=== PATIENT | male | born 1945 | race Caucasian/White ===

== ENCOUNTER → 2019-03-11 | Outpatient (CLI) | payer MEDICARE, OTHER ==
[2019-03-11 12:04] LABS: BE 2.1 mmol/L (-2 to +3); PCO2 42.3 mmHg (35.0-45.0)
== END ==
LOC: M.PUL 11:37
PROVIDERS: Internal Medicine
DX: J44.9 Chronic obstructive pulmonary disease, unspecified (principal)

== ENCOUNTER 2020-07-13 07:57 | Emergency (ER) | payer OTHER ==
[~2020-07-13] VITALS: Ht 177.8 cm; Wt 74.8 kg
[2020-07-13] MEDS ORDERED: CARAFATE 1 GM TA1 GM PO (08:13)
[2020-07-13] MEDS ORDERED: ZOCOR 20 MG TAB20 M1 PO (08:13)
[2020-07-13] MEDS ORDERED: MEDROLDOSEPACK PO (08:30)
[2020-07-13] MEDS ORDERED: VANACOF DM LIQ240 ML PO (08:30)
[2020-07-13] MEDS ORDERED: AZITHROMYCIN 2250 MG PO (08:30)
[2020-07-13 08:37] VITALS: BP 149/55
== END 2020-07-13 08:38 | disposition home or self-care (01) ==
LOC: M.ERS 07:57
DX: J44.1 Chronic obstructive pulmonary disease with (acute) exacerbation (principal); Z20.828 Contact with and (suspected) exposure to other viral communicable diseases; E78.00 Pure hypercholesterolemia, unspecified

== ENCOUNTER 2020-07-23 08:38 | Inpatient (IN) | payer OTHER ==
[~2020-07-23] VITALS: Ht 177.8 cm; Wt 86.9 kg
[~2020-07-23 08:38] MED LIST: AZITHROMYCIN 2250 MG PO; CARAFATE 1 GM TA1 GM PO; MEDROLDOSEPACK PO; VANACOF DM LIQ240 ML PO; ZOCOR 20 MG TAB20 M1 PO
[2020-07-23 08:50] VITALS: BP 129/72
[2020-07-23 09:22] LABS: APTT 25.7 Seconds (25.0-31.3); INR 1.1; PROTIME 11.3 Seconds (9.20-11.50)
[2020-07-23 09:24] LABS: CALCIUM 8.2 mg/dL (8.5-10.1); CREATININE 0.8 mg/dL (0.6-1.3); POTASSIUM 4.5 mmol/L (3.5-5.1)
[2020-07-23 09:25] LABS: ABSOLUTE EOSINOPHILS 0.2 thou/uL (0.0-0.7); ABSOLUTE MONOCYTES 0.5 thou/uL (0.0-1.2); ABSOLUTE NEUTROPHILS 4.7 thou/uL (1.6-8.1); BASOPHILS 0.4 %; EOSINOPHILS 3.2 %; HEMATOCRIT 46.4 % (42.0-52.0); MCH 29.8 pg (26.0-34.0); MCHC 32.3 g/dL (28.0-37.0); MCV 92.3 fL (80.0-100.0); MONOCYTES 7.4 %; MPV 8.4 fl. (7.2-11.1); NUCLEATED RBCS 0 /100WBC; PLATELET COUNT* 278 thou/uL (150-400); RBC 5.03 mil/uL (4.50-6.00); RDW-CV 14.2 % (10.5-14.5); WBC 6.4 thou/uL (4.0-11.0)
[2020-07-23 09:31] LABS: ALBUMIN 3.2 g/dL (3.4-5.0); MAGNESIUM 2.1 mg/dL (1.8-2.4); TOTAL BILIRUBIN 0.4 mg/dL (<0.1-1.0); TOTAL PROTEIN 6.1 g/dL (6.4-8.2)
[2020-07-23 12:30] VITALS: BP 128/41
[2020-07-23 15:11] VITALS: BP 140/60
[2020-07-23 15:19] VITALS: BP 140/60
[2020-07-23 21:00] VITALS: BP 142/47
[2020-07-24 04:50] VITALS: BP 120/54
[2020-07-24 04:56] LABS: HEMOGLOBIN 14.9 gm/dL (14.0-18.0); MCH 29.7 pg (26.0-34.0); MPV 8.7 fl. (7.2-11.1)
[2020-07-24 04:59] LABS: HEMATOCRIT 46.6 % (42.0-52.0); MCHC 31.9 g/dL (28.0-37.0); MCV 93.1 fL (80.0-100.0); NUCLEATED RBCS 0 /100WBC; PLATELET COUNT* 310 thou/uL (150-400); RBC 5.01 mil/uL (4.50-6.00); RDW-CV 13.9 % (10.5-14.5); WBC 8.6 thou/uL (4.0-11.0)
[2020-07-24 05:15] LABS: ANION GAP < 0 mmol/L (7-16); BUN 15 mg/dL (7-18); CALCIUM 8.5 mg/dL (8.5-10.1); CHLORIDE 104 mmol/L (98-107); CO2 41 mmol/L (21-32); CREATININE 0.7 mg/dL (0.6-1.3); GLUCOSE 177 mg/dL (70-99); POTASSIUM 4.9 mmol/L (3.5-5.1); SODIUM 143 mmol/L (136-145)
[2020-07-24 06:12] LABS: ABSOLUTE LYMPHOCYTES 0.5 thou/uL (0.8-5.3); ABSOLUTE MONOCYTES 0.2 thou/uL (0.0-1.2); ABSOLUTE NEUTROPHILS 7.9 thou/uL (1.6-8.1); PLATELET ESTIMATE ADEQUATE; TOXIC GRANULATION 1+
[2020-07-24 08:00] VITALS: BP 120/42
[2020-07-24 10:55] LABS: PO2 117.9 mmHg (75.0-100.0)
[2020-07-24 11:05] LABS: PCO2 83.9 mmHg (35.0-45.0)
--- NOTE | 2020-07-24 13:10 | EKG ---
[place] [address] ELECTROCARDIOGRAM REPORT Name: ANASTACIO CARRION Room: [address] ADM IN M.R.#: [id number] Admission: 07/23/20 Attend Phys: Espinoza Marin, Discharge: Date of : 49 Date of Service: 07/23/20 0852 Report #: [id number] THIS REPORT FOR: //name// [facility] ED Test Date: 2020-07-23 Test Time: 08:52:36 Pat Name: ANASTACIO CARRION Department: Room: 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
[2020-07-24 14:58] LABS: BE 8.6 mmol/L (-2 to +3); PO2 103.5 mmHg (75.0-100.0)
[2020-07-24 15:02] LABS: PCO2 81.2 mmHg (35.0-45.0); pH 7.295 (7.340-7.450)
[2020-07-24 16:32] VITALS: BP 120/60
[2020-07-24 16:53] LABS: BE 6.7 mmol/L (-2 to +3); pH 7.346 (7.340-7.450)
[2020-07-24 16:56] LABS: PCO2 65.1 mmHg (35.0-45.0)
[2020-07-24 20:53] VITALS: BP 107/55
[2020-07-25 00:26] VITALS: BP 90/40
[2020-07-25 04:21] LABS: ABSOLUTE EOSINOPHILS 0.1 thou/uL (0.0-0.7); ABSOLUTE LYMPHOCYTES 1.6 thou/uL (0.8-5.3); ABSOLUTE MONOCYTES 0.5 thou/uL (0.0-1.2); ABSOLUTE NEUTROPHILS 5.1 thou/uL (1.6-8.1); BASOPHILS 0.2 %; EOSINOPHILS 0.8 %; HEMATOCRIT 41.1 % (42.0-52.0); HEMOGLOBIN 13.2 gm/dL (14.0-18.0); LYMPHOCYTES 21.8 %; MCHC 32.2 g/dL (28.0-37.0); MCV 93.3 fL (80.0-100.0); MONOCYTES 7.3 %; MPV 8.6 fl. (7.2-11.1); NUCLEATED RBCS 0 /100WBC; PLATELET COUNT* 252 thou/uL (150-400); POLYS 69.9 %; RDW-CV 14.3 % (10.5-14.5); WBC 7.2 thou/uL (4.0-11.0)
[2020-07-25 04:26] LABS: ANION GAP < 0 mmol/L (7-16); BUN 19 mg/dL (7-18); CALCIUM 8.4 mg/dL (8.5-10.1); CHLORIDE 105 mmol/L (98-107); CO2 40 mmol/L (21-32); CREATININE 0.7 mg/dL (0.6-1.3); GLUCOSE 112 mg/dL (70-99); POTASSIUM 4.5 mmol/L (3.5-5.1); SODIUM 143 mmol/L (136-145)
[2020-07-25 04:45] VITALS: BP 111/45
[2020-07-25 10:40] LABS: BE 11.6 mmol/L (-2 to +3); PO2 90.8 mmHg (75.0-100.0); pH 7.386 (7.340-7.450)
[2020-07-25 10:53] LABS: PCO2 67.7 mmHg (35.0-45.0)
[2020-07-25 11:46] VITALS: BP 121/49
[2020-07-25 15:44] VITALS: BP 126/49
[2020-07-25 20:00] VITALS: BP 119/52
[2020-07-26] VITALS: BP 108/57
[2020-07-26 04:00] VITALS: BP 100/60
[2020-07-26 12:14] VITALS: BP 127/57
[2020-07-26 17:03] VITALS: BP 165/80
[2020-07-26 21:01] VITALS: BP 154/70
[2020-07-26 23:56] VITALS: BP 138/53
[2020-07-27 04:00] VITALS: BP 122/60
[2020-07-27 04:17] LABS: ABSOLUTE EOSINOPHILS 0.1 thou/uL (0.0-0.7); ABSOLUTE LYMPHOCYTES 1.2 thou/uL (0.8-5.3); ABSOLUTE MONOCYTES 0.6 thou/uL (0.0-1.2); ABSOLUTE NEUTROPHILS 5.6 thou/uL (1.6-8.1); BASOPHILS 0.1 %; EOSINOPHILS 0.8 %; HEMATOCRIT 41.6 % (42.0-52.0); HEMOGLOBIN 13.5 gm/dL (14.0-18.0); LYMPHOCYTES 16.3 %; MCH 29.6 pg (26.0-34.0); MCHC 32.6 g/dL (28.0-37.0); MONOCYTES 7.7 %; MPV 8.4 fl. (7.2-11.1); NUCLEATED RBCS 0 /100WBC; PLATELET COUNT* 252 thou/uL (150-400); POLYS 75.1 %; RBC 4.57 mil/uL (4.50-6.00); RDW-CV 13.8 % (10.5-14.5); WBC 7.5 thou/uL (4.0-11.0)
[2020-07-27 04:30] LABS: ALBUMIN 2.9 g/dL (3.4-5.0); CALCIUM 8.4 mg/dL (8.5-10.1); CREATININE 0.6 mg/dL (0.6-1.3); POTASSIUM 3.9 mmol/L (3.5-5.1); TOTAL BILIRUBIN 0.5 mg/dL (<0.1-1.0); TOTAL PROTEIN 5.7 g/dL (6.4-8.2)
[2020-07-27 08:00] VITALS: BP 144/68
[2020-07-27] MEDS ORDERED: IPRAT-ALBUT 0.5-3 ML INH (08:21)
[2020-07-27] MEDS ORDERED: LEVOFLOXACIN750 MG PO (08:21)
[2020-07-27] MEDS ORDERED: PULMICORT0.5 MG/2 M INH (08:21)
[2020-07-27] MEDS ORDERED: BROVANA15 MCG/2 M INH (08:21)
[2020-07-27] MEDS ORDERED: PREDNISONE 10 M10 M1 PO (08:21)
[2020-07-27] MEDS ORDERED: NEBULIZER MISCELL (08:32)
[2020-07-27 13:44] VITALS: BP 144/68
[2020-07-27 13:48] VITALS: BP 144/68
[2020-07-27 16:18] VITALS: BP 144/68
--- NOTE | 2020-07-28 07:09 | PATH ---
[address] [address] PATHOLOGY RPT PROCEDURE Name: JEFF CARRINO Room: [address] IN ..#: [id number] Admission: 07/23/20 Date of : 49 Discharge: 07/27/20 Report #: [id number] Path Case #: [id number] Note [facility] Accession Number: [id number] TESTS RESULT FLAG UNITS REF RANGE LAB Clinician Provided Cytology Information No. of containers..01 Other (Miscellaneous) Source: RIGHT THYROID DIAGNOSIS: 02 RIGHT THYROID, IMAGE-GUIDED FNA: NEGATIVE FOR MALIGNANT CELLS. [place] CATEGORY II. SPECIMEN CONSISTS OF BENIGN FOLLICULAR CELLS, HEMOSIDERIN-LADEN MACROPHAGES, COLLOID, AND BLOOD. THIS PATTERN IS CONSISTENT WITH A COLLOID NODULE. THIS INTERPRETATION INCLUDES EVALUATION OF A CELL BLOCK. Pathologist ICD10: 02 E04.1 Signed out by: 02 Andrew Boyce MD, Pathologist NPI- [id number] Performed by: Mohit Chaudhari, Certified Emergency Vehicle Technician ([facility]) Gross description: 01 18ML, RED, 4 FX 7 DQ /LCS 07/26/2020 1145 Local FLAG LEGEND: L-Low Normal,H-High Normal,LL-Alert Low,HH-Alert High <-Panic Low,>-Panic High,A-Abnormal,AA-Critical Abnormal Performed at: [address] [place] [address] Wilmer Carl MD, [address] [place] [address] [place] [address] Andrew Boyce MD, Specimen Comment: A courtesy copy of this report has been sent to [phone] Specimen Comment: [id number] Specimen Comment: [id number] Specimen Comment: Report sent to DR VAZ / DR CARTER Performed at: [address], [place], [place] [id number] MD Wilmer Carl MD Phone: [phone]
== END 2020-07-27 17:29 | disposition home health service (06) | DRG 177 ==
LOC: M.ERS 08:38 → M.2W 10:45 → M.TBA-ER 10:45 → M.2W 13:13
PROVIDERS: Family Medicine; Pediatrics; ADMIT Internal Medicine; ATTEND Internal Medicine
PROC: 5A09357 Assistance with Respiratory Ventilation, Less than 24 Consecutive Hours, Continuous Positive Airway Pressure (ICD-10-PCS; principal; 2020-07-24)
PROC: 0G9H3ZX Drainage of Right Thyroid Gland Lobe, Percutaneous Approach, Diagnostic (ICD-10-PCS; 2020-07-25)
PROC: 5A09357 Assistance with Respiratory Ventilation, Less than 24 Consecutive Hours, Continuous Positive Airway Pressure (ICD-10-PCS; 2020-07-25)
PROC: 5A09357 Assistance with Respiratory Ventilation, Less than 24 Consecutive Hours, Continuous Positive Airway Pressure (ICD-10-PCS; 2020-07-26)
DX: J15.6 Pneumonia due to other Gram-negative bacteria (principal); J96.21 Acute and chronic respiratory failure with hypoxia; J96.22 Acute and chronic respiratory failure with hypercapnia; J44.1 Chronic obstructive pulmonary disease with (acute) exacerbation; J44.0 Chronic obstructive pulmonary disease with (acute) lower respiratory infection; E07.9 Disorder of thyroid, unspecified; R53.83 Other fatigue; E78.00 Pure hypercholesterolemia, unspecified; Z20.828 Contact with and (suspected) exposure to other viral communicable diseases; Z79.899 Other long term (current) drug therapy; Z87.891 Personal history of nicotine dependence; Z91.14 Patient's other noncompliance with medication regimen